=== PATIENT | male | born 1940 ===

== ENCOUNTER 2017-05-02 20:08 | Emergency (ER) | payer MEDICAID ==
[2017-05-02 20:09] VITALS: BMI 27.3
[2017-05-02 21:33] LABS: BASO # 0.1 K/uL (0.0-0.2); BASO % 1.3 % (0.0-2.0); EOS # 0.2 K/uL (0.0-0.7); EOS % 2.4 % (0.0-4.0); LYMPH # 0.8 K/uL (1.0-4.3); LYMPH % 10.8 % (20.0-40.0); MEAN CELL VOLUME 95.9 fl (80.0-94.0); MEAN CORPUSCULAR HEMOGLOBIN 31.5 pg (27.0-31.0); MEAN CORPUSCULAR HGB CONC 32.8 g/dL (33.0-37.0); MEAN PLATELET VOLUME 8.2 fl (7.2-11.7); MONO # 0.5 K/uL (0.0-0.8); MONO % 6.4 % (0.0-10.0); NEUT # 5.8 K/uL (1.8-7.0); NEUT % 79.1 % (50.0-75.0); NRBC % 0.1 % (0.0-0.0); RBC 4.45 Mil/uL (4.40-5.90); RED CELL DISTRIBUTION WIDTH 14.5 % (11.5-14.5); WHITE BLOOD COUNT 7.4 K/uL (4.8-10.8)
[2017-05-02 21:45] LABS: ACETAMINOPHEN < 10.0 ug/ml (10.0-30.0); SALICYLATE < 1.0 mg/dl
[2017-05-02 21:46] LABS: BLOOD UREA NITROGEN 24 mg/dl (9-20); CALCIUM 8.9 mg/dL (8.4-10.2); GFR AFRICAN-AMERICAN > 60; GFR NON-AFRICAN AMERICAN 59
--- NOTE | 2017-05-02 22:08 | ED PDOC ---
HPI: Psych/Substance Abuse Time Seen by Provider: 05/02/17 20:26 Chief Complaint (Nursing): Psychiatric Evaluation Chief Complaint (Provider): Aggressive Behaviour History Per: Patient History/Exam Limitations: no limitations Onset/Duration Of Symptoms: Hrs Suicide/Self Injury Attempted (Context): None Modifying Factor(s): None Additional Complaint(s): 77 year old male with a past medical history of depression is brought into the ED from his group home for aggressive behaviour. As per group home, the patient was throwing dumbbells at staff. The patient states that he sometimes just gets angry but he currently feels calm. Denies Homicidal ideation/Suicidal ideation. Past Medical History Reviewed: Historical Data, Nursing Documentation, Vital Signs Vital Signs: Last Vital Signs Temp 98.4 F 05/02/17 20:10 Pulse 60 05/02/17 20:10 Resp 18 05/02/17 20:10 BP 182/87 H 05/02/17 20:10 Pulse Ox 97 05/02/17 20:10 - Medical History PMH: Atrial Fibrillation, Benign Prostatic Hyperplasia, COPD, Depression (Major depressive), HTN, Hyperlipidemia, Sleep Apnea - Surgical History Surgical History: No Surg Hx - Family History Family History: States: Unknown Family Hx - Social History Current smoker - smoking cessation education provided: No (Former Smoker) Ex-Smoker (has not smoked in the last 12 months): No Alcohol: None Drugs: Denies - Immunization History Hx Tetanus Toxoid Vaccination: No Hx Influenza Vaccination: Yes (12/06/2015) Hx Pneumococcal Vaccination: Yes (12/06/2015) - Home Medications Home Medications: Ambulatory Orders Medication Instructions Recorded Acetaminophen [Tylenol 325mg tab] 650 mg PO Q4 PRN 09/22/16 Albuterol/Ipratropium [Duoneb 3 3 ml IH Q6 PRN 09/22/16 mg/0.5 mg (3 ml) UD] Aspirin [Aspirin Chewable] 81 mg PO DAILY 09/22/16 Benzonatate [Tessalon Perle] 100 mg PO Q8 09/22/16 Brimonidine 0.15% [Alphagan P 1 drop OP BID 09/22/16 0.15% Opht] Bumetanide [Bumex] 0.5 mg PO DAILY 09/22/16 Citalopram Hydrobromide [Celexa] 20 mg PO DAILY 09/22/16 Diclofenac Sodium [Pennsaid] 2 TP 09/22/16 Dorzolamide HCl/Timolol Maleat 10 ml OP BID 09/22/16 [Dorzolamide-Timolol Eye Drops] Finasteride [Proscar] 5 mg PO DAILY 09/22/16 Fluticasone/Salmeterol [Advair 1 each IH Q12 PRN 09/22/16 250-50 Diskus] GlipiZIDE SR [Glucotrol XL] 2.5 mg PO DAILY 09/22/16 Insulin Regular, Human [Novolin R] BID 09/22/16 Lactulose [Generlac] 10 gm PO HS PRN 09/22/16 Latanoprost 0.005% Opht [Xalatan 25 drop OD HS 09/22/16 Opht] Losartan Potassium 100 mg PO DAILY 09/22/16 Pilocarpine 1% Opht [Isopto 1 drop OP TID 09/22/16 Carpine 1% Opht Soln] Simvastatin 20 mg PO HS 09/22/16 Tamsulosin [Flomax] 0.4 mg PO DAILY 09/22/16 acetaZOLAMIDE [Diamox 250 mg Tab] 250 mg PO BID 09/22/16 - Allergies Allergies/Adverse Reactions: Allergies Allergy/AdvReac Type Severity Reaction Status Date / Time No Known Allergies Allergy Verified 09/22/16 20:47 Review of Systems ROS Statement: Except As Marked, All Systems Reviewed And Found Negative Psych: Positive for: Other (Aggressive behaviour). Negative for: Suicidal ideation (deie shomicidal ideations) Physical Exam - Reviewed Nursing Documentation Reviewed: Yes Vital Signs Reviewed: Yes - Physical Exam Appears: Positive for: Non-toxic, No Acute Distress Head Exam: Positive for: ATRAUMATIC, NORMAL INSPECTION, NORMOCEPHALIC Skin: Positive for: Normal Color, Warm, Dry. Negative for: Rash Eye Exam: Positive for: Normal appearance, EOMI, PERRL. Negative for: Nystagmus ENT: Positive for: Normal ENT Inspection. Negative for: Nasal Congestion, Tonsillar Exudate, Tonsillar Swelling Neck: Positive for: Normal, Painless ROM, Supple Cardiovascular/Chest: Positive for: Regular Rate, Rhythm, Chest Non Tender. Negative for: Tachycardia Respiratory: Positive for: Normal Breath Sounds. Negative for: Rales, Rhonchi, Wheezing, Respiratory Distress Gastrointestinal/Abdominal: Positive for: Normal Exam, Bowel Sounds, Soft. Negative for: Tenderness, Guarding, Rebound Back: Positive for: Normal Inspection. Negative for: L CVA Tenderness, R CVA Tenderness, Vertebral Tenderness Extremity: Positive for: Normal ROM. Negative for: Tenderness, Deformity, Swelling Neurologic/Psych: Positive for: Alert (a&O x3), Oriented - Laboratory Results Result Diagrams: 05/02/17 21:00 05/02/17 21:00 - ECG O2 Sat by Pulse Oximetry: 97 (RA) Pulse Ox Interpretation: Normal Medical Decision Making Medical Decision Makin Initial Impression 77 year old male presenting with depression Initial Plan: * Acetaminophen * Alcohol Serum * BMP * Drug Screen * Salicylate * Crisis Evaluation * CBC * Urinalysis * Reevaluation 2309 Patient has been cleared by crisis as per Dr. Benito. Dx: adjustment disorder. Patient will return to group home. Documented by Gris Valdez acting as a scribe for Axel Menendez MD. All medical record entries made by the Scribe were at my direction and personally dictated by me. I have reviewed the chart and agree that the record accurately reflects my personal performance of the history, physical exam, medical decision making, and the department course for this patient. I have also personally directed, reviewed, and agree with the discharge instructions and disposition. Disposition - Clinical Impression Clinical Impression: Adjustment disorder - Disposition [facility]errals: [facility] [Outside] Disposition: Routine/Home Disposition Time: 23:20 Condition: STABLE Instructions: Adjustment Disorder Forms: [facility] (Bulgarian) Print Language: GEORGIAN
[2017-05-03 03:44] VITALS: BP 156/85; PULSE 60; RESP 18; TEMP 97.7; O2SAT 93
== END 2017-05-03 05:47 | disposition home or self-care (01) ==
LOC: H.ER 20:08
DX: F43.20 Adjustment disorder, unspecified (principal); E78.5 Hyperlipidemia, unspecified; I10 Essential (primary) hypertension; F32.9 Major depressive disorder, single episode, unspecified; Z79.82 Long term (current) use of aspirin; Z79.84 Long term (current) use of oral hypoglycemic drugs; N40.0 Benign prostatic hyperplasia without lower urinary tract symptoms; I48.91 Unspecified atrial fibrillation; J44.9 Chronic obstructive pulmonary disease, unspecified